=== PATIENT | male | born 1965 | race Caucasian/White ===

== ENCOUNTER 2019-03-20 03:20 | Inpatient (IN) | payer OTHER, SELFPAY ==
[2019-03-20 04:31] LABS: ALT/SGPT 45 U/L (12-78); AST/SGOT 62 U/L (15-37); Albumin 2.3 g/dL (3.4-5.0); Alkaline Phosphatase 107 U/L (45-117); BUN Blood Urea Nitrogen 9 mg/dL (7-18); Bicarbonate 25 mmol/L (21-32); Bilirubin Direct 0.6 mg/dL (0-0.2); Bilirubin Total 1.6 mg/dL (0.2-1.0); CKMB Creatine Kinase MB < 1.0 ng/mL (0.3-3.6); Creatine Phosphokinase 45 U/L (39-308); Glucose Level 203 mg/dL (74-106); Lipase 523 U/L (73-393); Magnesium 1.7 mg/dL (1.8-2.4); NT PRO-BNP 21 pg/mL (<125); Potassium 3.9 mmol/L (3.5-5.1); Protein, Total 5.9 g/dL (6.4-8.2); Sodium Level 141 mmol/L (136-145); Troponin (Emerg Dept Use Only) < 0.02 ng/mL (0.0-0.045)
[2019-03-20 04:37] LABS: Absolute Lymphocytes (CBC) 1.9 K/uL (0.7-4.9); Hematocrit 34.1 % (39.6-49.0); Lymphocytes % 20.8 % (15.3-44.8); MPV 10.4 fL (7.6-11.3); RBC Red Blood Cell Count 3.29 M/uL (4.33-5.43)
[2019-03-20] MEDS ORDERED: PANTOPRAZOLE 40 MG INJ ONE ×2 (04:39→20:08)
[2019-03-20] MEDS ORDERED: NA CHLORIDE 0.9% 250 ML ONE ×2 (04:39→20:09)
[2019-03-20] MEDS ORDERED: ONDANSETRON 4 MG/2 ML VIAL ONE (04:39)
[2019-03-20 04:41] LABS: Protime INR 1.2
[2019-03-20] MEDS ORDERED: NA CHLORIDE 0.9% 1,000 ML ONE ×2 (04:45→10:35)
[2019-03-20] MEDS ORDERED: MORPHINE 2 MG/ML SYR ONE (04:46)
--- NOTE | 2019-03-20 06:17 | P.HP ---
Certification for Inpatient Patient admitted to: Inpatient With expected LOS: >2 Midnights Practitioner: I am a practitioner with admitting privileges, knowledge of patient current condition, hospital course, and medical plan of care. Services: Services provided to patient in accordance with Admission requirements found in Title 42 Section 412.3 of the Code of Federal Regulations Patient History Date of Service: 03/20/19 Reason for admission: Hematemesis History of Present Illness: 53-year-old gentleman with a history of alcohol liver cirrhosis, history of esophageal varices, prior hospitalizations for GI bleed presented to the ED due to an episode of hematemesis. Patient stated he felt nauseous and cough up blood twice before coming to the ED. He also reports melena. He has a history of esophageal varices which were banded in 2017. Patient was also told to follow up 1 month later for further staged banding but never did. He has also been noncompliant with his medications which includes Protonix and propranolol. He reports epigastric pain. No confusion reported. Blood work shows anemia with hemoglobin of 11. His lipase is also elevated to 523. The patient is admitted for further management. Allergies No Known Allergies Allergy (Verified 03/20/19 09:27) - Past Medical/Surgical History Diabetic: No -: Cirrhosis of the liver -: HTN -: Tobacco abuse -: Right nephrolithiasis -: Esophageal varices with history of bleeding -: Banding of varices -: Left thigh muscle repair -: Left arm muscle repair Psychosocial/ Personal History: The patient is , has 1 child. He does not work. - Family History Father -: Hypertension, Lung disease Mother -: Lung disease, Diabetes - Social History Smoking Status: Light Tobacco smoker (1-9 cigarettes/day) Alcohol use: No CD- Drugs: No Caffeine use: Yes Review of Systems Other: General: No fever, no malaise, no unintentional weight loss. Eyes: No eye discharge, Respiratory: No cough, no shortness of breath. CVS: No chest pain, no palpitation, no lightheadedness. GI: No constipation, no diarrhea. Genitourinary: No dysuria, no urinary frequency, no incontinence, no hematuria. Musculoskeletal: No joint pains, or joint swelling, no gait instability. Neurology: No headache, no asymmetric weakness, no problem with swallowing. Except as documented, all other systems reviewed and negative. Physical Examination - Physical Exam General: Alert, In no apparent distress, Oriented x3 HEENT: Mucous membr. moist/pink, Sclerae nonicteric Neck: Supple, JVD not distended Respiratory: Clear to auscultation bilaterally, Normal air movement Cardiovascular: No edema, Normal pulses, Regular rate/rhythm, Normal S1 S2 Capillary refill: <2 Seconds Gastrointestinal: Normal bowel sounds, Soft and benign, Non-distended, No tenderness Musculoskeletal: No swelling, No erythema Integumentary: No rashes, No erythema Neurological: Normal speech, Normal strength at 5/5 x4 extr - Studies Laboratory Data (last 24 hrs) 03/20/19 03:43: PT 14.1 H, INR 1.20, APTT 29.9 03/20/19 03:43: WBC 9.1, Hgb 11.8 L, Hct 34.1 L, Plt Count 153 03/20/19 03:43: Sodium 141, Potassium 3.9, BUN 9, Creatinine 0.90, Glucose 203 H , Magnesium 1.7 L, Total Bilirubin 1.6 H, AST 62 H, ALT 45, Alkaline Phosphatase 107, Lipase 523 H Assessment and Plan - Problems (Diagnosis) (1) GIB (gastrointestinal bleeding) Onset Date: 04/26/15 Current Visit: No Status: Acute Qualifiers: GI bleed type/associated pathology: unspecified gastrointestinal hemorrhage type Qualified Code(s): K92.2 - Gastrointestinal hemorrhage, unspecified (2) Anemia Onset Date: 04/10/16 Current Visit: No Status: Acute Qualifiers: Anemia type: other cause Other causes of anemia: acute posthemorrhagic Qualified Code(s): D62 - Acute posthemorrhagic anemia (3) Esophageal varices in alcoholic cirrhosis Current Visit: No Status: Acute (4) Alcoholic cirrhosis Onset Date: 04/10/16 Current Visit: No Status: Chronic Qualifiers: Ascites presence: without ascites Qualified Code(s): K70.30 - Alcoholic cirrhosis of liver without ascites (5) Tobacco abuse Onset Date: 04/10/16 Current Visit: No Status: Chronic - Plan Admit to the medical floor IV Protonix drip IV octreotide drip Propanolol if his BP will tolerate it. Prophylactic IV Rocephin Monitor H&H q.6 hr and transfuse p.r.n. Spironolactone GI consult. - Advance Directives Does patient have a Living Will: No Does patient have a Durable POA for Healthcare: No
--- NOTE | 2019-03-20 07:56 | RAD REPORT ---
EXAM DESCRIPTION: Evens Single View03/20/2019 3:56 am CLINICAL HISTORY: Hemoptysis COMPARISON: 2015 FINDINGS: The lungs appear clear of acute infiltrate. The heart is normal size IMPRESSION: No acute abnormalities displayed
[2019-03-20] MEDS ORDERED: ONDANSETRON 4 MG/2 ML VIAL IV PRN (09:17)
[2019-03-20 09:45] LABS: Hematocrit 30.6 % (39.6-49.0)
[2019-03-20] MEDS ORDERED: PROMETHAZINE INJ 25 MG/ML AMP IV PRN (09:49)
--- NOTE | 2019-03-20 09:52 | EDPHYS ---
Physician Documentation [facility] Name: Johny Dias Jr Age: 53 yrs Sex: Male : 1965 Arrival Date: 03/20/2019 Time: 03:27 Bed 13 Private MD: Micah Ambrosio ED Physician Lion Henson HPI: 03/20 05:08 This 53 yrs old Male presents to ER via EMS with complaints of Abdominal Pain.tw4 05:08 The patient presents to the emergency department with nausea, vomiting, that is tw4 continuous. The patient presents to the emergency department with vomiting, described as blood streaked, bright red blood. Onset: The symptoms/episode began/occurred today. Possible causes: unknown. The symptoms are aggravated by nothing. The symptoms are alleviated by nothing. The patient has not experienced similar symptoms in the past. Historical: - Allergies: 03:33 No Known Allergies; fc - Home Meds: 03:33 No Rx's in 3 months [Active]; fc - PMHx: 03:33 Cirrhosis; Hypertension; Gallbladder issues; Kidney stones; Esophageal varacies; GI fc Bleed; - PSHx: 03:33 banded varices; arm; leg; fc - Immunization history:: Last tetanus immunization: unknown, Flu vaccine status is unknown. - Coronavirus screen:: The patient has NOT traveled to [place], [place], or [place] in the past 14 days. Proceed with normal triage process as indicated. The patient has NOT had contact with known/suspected case of Coronavirus? Proceed with normal triage procedures. - Social history:: Smoking status: Patient reports the use of cigarette tobacco products, smokes one-half pack cigarettes per day, Patient/guardian denies using alcohol, the patient reports quitting approximately [address], [address] drugs. - Ebola Screening: : Patient negative for fever greater than or equal to 101.5 degrees Fahrenheit, and additional compatible Ebola Virus Disease symptoms Patient denies exposure to infectious person Patient denies travel to an Ebola-affected area in the 21 days before illness onset. ROS: 05:08 Constitutional: Negative for fever, chills, and weight loss, Eyes: Negative for injury, tw4 pain, redness, and discharge, Cardiovascular: Negative for chest pain, palpitations, and edema, Respiratory: Negative for shortness of breath, cough, wheezing, and pleuritic chest pain, Back: Negative for injury and pain, MS/Extremity: Negative for injury and deformity, Skin: Negative for injury, rash, and discoloration, Neuro: Negative for headache, weakness, numbness, tingling, and seizure. 05:08 Abdomen/GI: Positive for abdominal pain, nausea and vomiting, hematemesis, Negative for vomiting, diarrhea, black/tarry stool, rectal pain, rectal bleeding, bowel incontinence, flatulence. Exam: 05:08 Constitutional: This is a well developed, well nourished patient who is awake, alert, tw4 and in no acute distress. Head/Face: Normocephalic, atraumatic. Chest/axilla: Normal chest wall appearance and motion. Nontender with no deformity. No lesions are appreciated. Cardiovascular: Regular rate and rhythm with a normal S1 and S2. No gallops, murmurs, or rubs. Normal PMI, no JVD. No pulse deficits. Respiratory: Lungs have equal breath sounds bilaterally, clear to auscultation and percussion. No rales, rhonchi or wheezes noted. No increased work of breathing, no retractions or nasal flaring. Back: No spinal tenderness. No costovertebral tenderness. Full range of motion. MS/ Extremity: Pulses equal, no cyanosis. Neurovascular intact. Full, normal range of motion. Neuro: Awake and alert, GCS 15, oriented to person, place, time, and situation. Cranial nerves II-XII grossly intact. Motor strength 5/5 in all extremities. Sensory grossly intact. Cerebellar exam normal. Normal gait. 05:08 Abdomen/GI: Inspection: abdomen appears normal, Bowel sounds: normal, Palpation: abdomen is soft and non-tender. Vital Signs: 03:20 BP 95 / 73; Pulse 106; Resp 18; Temp 97.6(O); Pulse Ox 100% on R/A; Weight 102.06 kg fc (R); Height 5 ft. 10 in. (177.80 cm) (R); Pain 9/10; 04:20 BP 109 / 81; Pulse 91; Resp 18; Temp 98; Pulse Ox 99% ; Pain 8/10; jv1 05:18 BP 117 / 91; Pulse 89; Resp 18; Temp 98.2; Pulse Ox 99% ; Pain 2/10; jv1 05:48 BP 113 / 81; Pulse 90; Resp 18; Temp 98; Pulse Ox 100% on R/A; Pain 5/10; jv1 06:16 BP 118 / 82; Pulse 89; Resp 18; Temp 98.2; Pulse Ox 99% ; Pain 4/10; jv1 06:48 BP 106 / 81; Pulse 97; Resp 18; Temp 98.4; Pulse Ox 100% ; Pain 2/10; jv1 07:55 BP 113 / 73; Pulse 91; Resp 17; Pulse Ox 100% on R/A; tw2 03:20 Body Mass Index 32.28 (102.06 kg, 177.80 cm) fc MDM: 03:29 Patient medically screened. tw4 06:48 Differential diagnosis: Nonspecific abd pain, gastritis, viral gastroenteritis. Data tw4 reviewed: vital signs, nurses notes. Data interpreted: Pulse oximetry: Interpretation: normal. Test interpretation: by ED physician or midlevel provider: ECG, plain radiologic studies. Medication response: Zofran relieved the patient's nausea. Response to treatment: the patient's symptoms have markedly improved after treatment, and as a result, I will admit patient. Physician consultation: Salas Hanna was contacted at 05:30, regarding admission, to the telemetry unit. patient's condition, and will see patient in inpatient room. 03/20 03:30 Order name: Cardiac monitoring; Complete Time: 04:00 4 03/20 03:30 Order name: EKG - Nurse/Tech; Complete Time: 04:00 4 03/20 03:30 Order name: IV Saline Lock; Complete Time: 04:00 4 03/20 03:30 Order name: Labs collected and sent; Complete Time: 04:00 4 03/20 03:30 Order name: O2 Per Protocol; Complete Time: 06:17 tw4 03/20 03:30 Order name: O2 Sat Monitoring; Complete Time: 06:17 tw4 EC:50 Rate is 99 beats/min. Rhythm is regular. QRS [place] is Normal. TN interval is normal. QRS tw4 interval is normal. QT interval is normal. No Q waves. T waves are Normal. No ST changes noted. Clinical impression: Normal ECG. Interpreted by me. Reviewed by me. Administered Medications: 04:38 CANCELLED (dose change): morphine 4 mg IVP once; RASS on ADMIN: Combtv4, Very Agttd3, fc Agttd2, Rstlss1, AlertClm0, Drwsy-1, Lt Sdtn-2, Mod Sdtn-3, Dp Sdtn-4, UnArsble-5 04:45 Drug: NS 0.9% 1000 ml Route: IV; Rate: 1 bolus; Site: left antecubital; jv1 05:31 Follow up: Response: No adverse reaction; Marked relief of symptoms; IV Status: jv1 Completed infusion 04:50 Drug: Zofran 4 mg Route: IVP; Site: left antecubital; jv1 05:30 Follow up: Response: No adverse reaction; Nausea is decreased jv1 04:55 Drug: morphine 2 mg {Note: rass 0 alert/awake .} Route: IVP; Site: left antecubital; jv1 05:30 Follow up: Response: No adverse reaction; Pain is decreased; RASS: Alert and Calm (0) jv1 05:00 Drug: ProTONIX 8 mg/hr Route: IV; Rate: 25 ml/hr; Site: left antecubital; jv1 Disposition: 03/20/19 05:41 Hospitalization ordered by Salas Hanna for Inpatient Admission. Preliminary diagnosis are Encounter for screening for upper gastrointestinal disorder, Gastrointestinal hemorrhage, unspecified. - Bed requested for Telemetry/MedSurg (Inpatient). - Status is Inpatient Admission. tw2 - Condition is Fair. - Problem is new. - Symptoms have improved. Signatures: Nuvia Holland RN RN Annalise Bellamy RN RN tl1 Christelle Fisher RN RN tw2 Lion Henson MD MD tw4 Naomi Bose RN RN jv1 Corrections: (The following items were deleted from the chart) 04:38 04:32 morphine 4 mg IVP once; RASS on ADMIN: Combtv4, Very Agttd3, Agttd2, Rstlss1, fc AlertClm0, Drwsy-1, Lt Sdtn-2, Mod Sdtn-3, Dp Sdtn-4, UnArsble-5 ordered. tw4 06:34 05:41 Hospitalization Ordered by Salas Hanna for Inpatient Admission. Preliminary tl1 diagnosis is Encounter for screening for upper gastrointestinal disorder; Gastrointestinal hemorrhage, unspecified. Bed requested for Telemetry/MedSurg (Inpatient). Status is Inpatient Admission. Condition is Fair. Problem is new. Symptoms have improved. tw4 08:43 06:34 03/20/2019 05:41 Hospitalization Ordered by Salas Hanna for Inpatient tw2 Admission. Preliminary diagnosis is Encounter for screening for upper gastrointestinal disorder; Gastrointestinal hemorrhage, unspecified. Bed requested for Telemetry/MedSurg (Inpatient). Status is Inpatient Admission. Condition is Fair. Problem is new. Symptoms have improved. tl1
--- NOTE | 2019-03-20 09:53 | ER ---
Nurse's Notes [facility] Name: Johny Dias Jr Age: 53 yrs Sex: Male : 1965 Arrival Date: 03/20/2019 Time: 03:27 Bed 13 Private MD: Micah Ambrosio Diagnosis: Encounter for screening for upper gastrointestinal disorder;Gastrointestinal hemorrhage, unspecified Presentation: 03/20 03:20 Presenting complaint: Patient states: that he has been having abd pain x 3 days. 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 Denies any vomiting, blood in stool and has taken none of his medications x 3 months. Last stool was tonight. Transition of care: patient was not received from another setting of care. Onset of symptoms was March 17, 2019. Risk Assessment: Do you want to hurt yourself or someone else? Patient reports no desire to harm self or others. Initial Sepsis Screen: Does the patient meet any 2 criteria? HR > 90 bpm. No. Patient's initial sepsis screen is negative. Does the patient have a suspected source of infection? No. Patient's initial sepsis screen is negative. Care prior to arrival: Glucose check: 165. 03:20 Method Of Arrival: EMS: [facility] 03:20 Acuity: CHAY 3 fc Triage Assessment: 03:20 General: Appears in no apparent distress. comfortable, obese, Behavior is calm, fc cooperative, appropriate for age. Pain: Complains of pain in abdomen Pain currently is 9 out of 10 on a pain scale. Quality of pain is described as aching, sharp, Pain began 2-3 days ago. Is continuous. EENT: No deficits noted. Neuro: Level of Consciousness is awake, alert, obeys commands, Oriented to person, place, time, situation, Appropriate for age. Cardiovascular: No deficits noted. Respiratory: Airway is patent Respiratory effort is even, unlabored, Respiratory pattern is regular, symmetrical, Sputum is bloody per pt Breath sounds are clear bilaterally. Onset: The symptoms/episode began/occurred just prior to arrival, the patient reports symptoms have resolved. GI: Abdomen is round obese, Bowel sounds present X 4 quads. Abd is soft X 4 quads Abdomen is tender to palpation X 4 quads. Reports lower abdominal pain, upper abdominal pain, Patient currently denies diarrhea, nausea, vomiting. : No deficits noted. Derm: Skin is intact, Skin is dry, Skin is pale, Skin temperature is warm. Musculoskeletal: No signs and/or symptoms reported regarding the musculoskeletal system. Historical: - Allergies: 03:33 No Known Allergies; fc - Home Meds: 03:33 No Rx's in 3 months [Active]; fc - PMHx: 03:33 Cirrhosis; Hypertension; Gallbladder issues; Kidney stones; Esophageal varacies; GI fc Bleed; - PSHx: 03:33 banded varices; arm; leg; fc - Immunization history:: Last tetanus immunization: unknown, Flu vaccine status is unknown. - Coronavirus screen:: The patient has NOT traveled to [place], [place], or [place] in the past 14 days. Proceed with normal triage process as indicated. The patient has NOT had contact with known/suspected case of Coronavirus? Proceed with normal triage procedures. - Social history:: Smoking status: Patient reports the use of cigarette tobacco products, smokes one-half pack cigarettes per day, Patient/guardian denies using alcohol, the patient reports quitting approximately [address], [address] drugs. - Ebola Screening: : Patient negative for fever greater than or equal to 101.5 degrees Fahrenheit, and additional compatible Ebola Virus Disease symptoms Patient denies exposure to infectious person Patient denies travel to an Ebola-affected area in the 21 days before illness onset. Screenin:31 Abuse screen: Denies threats or abuse. Nutritional screening: No deficits noted. fc Tuberculosis screening: No symptoms or risk factors identified. Fall Risk None identified. Assessment: 04:09 General: Appears in no apparent distress. well groomed. Pain: Complains of pain in jv1 abdomen Pain does not radiate. Pain currently is 8 out of 10 on a pain scale. Quality of pain is described as aching, Pain began 2-3 days ago. 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 Speech is normal. Cardiovascular: Denies chest pain, Capillary refill < 3 seconds Pulses are all present. Respiratory: Airway is patent Respiratory effort is even, unlabored, Respiratory pattern is regular, symmetrical, Breath sounds are clear bilaterally. GI: Abdomen is round distended, Bowel sounds present X 4 quads. Abd is soft Abdomen is tender to palpation X 4 quads. Reports upper abdominal pain, vomiting, since 3 hrs ago pt stated he vomited a handful of blood. : No signs and/or symptoms were reported regarding the genitourinary system. EENT: No signs and/or symptoms were reported regarding the EENT system. Derm: No signs and/or symptoms reported regarding the dermatologic system. Skin is intact, is healthy with good turgor. Musculoskeletal: No signs and/or symptoms reported regarding the musculoskeletal system. Capillary refill < 3 seconds. 05:16 Reassessment: Patient appears in no apparent distress at this time. Patient and/or jv1 family updated on plan of care and expected duration. Pain level reassessed. Patient is alert, oriented x 3, equal unlabored respirations, skin warm/dry/pink. Patient states feeling better. Patient states symptoms have improved. 06:16 Reassessment: Patient appears in no apparent distress at this time. No changes from jv1 previously documented assessment. Patient and/or family updated on plan of care and expected duration. Pain level reassessed. Patient is alert, oriented x 3, equal unlabored respirations, skin warm/dry/pink. Patient states feeling better. Patient states symptoms have improved. 06:48 Reassessment: Patient appears in no apparent distress at this time. No changes from jv1 previously documented assessment. Patient and/or family updated on plan of care and expected duration. Pain level reassessed. Patient is alert, oriented x 3, equal unlabored respirations, skin warm/dry/pink. Patient states feeling better. Patient states symptoms have improved. 07:55 Reassessment: Patient appears in no apparent distress at this time. No changes from tw2 previously documented assessment. Patient and/or family updated on plan of care and expected duration. Pain level reassessed. Patient is alert, oriented x 3, equal unlabored respirations, skin warm/dry/pink. Vital Signs: 03:20 BP 95 / 73; Pulse 106; Resp 18; Temp 97.6(O); Pulse Ox 100% on R/A; Weight 102.06 kg fc (R); Height 5 ft. 10 in. (177.80 cm) (R); Pain 9/10; 04:20 BP 109 / 81; Pulse 91; Resp 18; Temp 98; Pulse Ox 99% ; Pain 8/10; jv1 05:18 BP 117 / 91; Pulse 89; Resp 18; Temp 98.2; Pulse Ox 99% ; Pain 2/10; jv1 05:48 BP 113 / 81; Pulse 90; Resp 18; Temp 98; Pulse Ox 100% on R/A; Pain 5/10; jv1 06:16 BP 118 / 82; Pulse 89; Resp 18; Temp 98.2; Pulse Ox 99% ; Pain 4/10; jv1 06:48 BP 106 / 81; Pulse 97; Resp 18; Temp 98.4; Pulse Ox 100% ; Pain 2/10; jv1 07:55 BP 113 / 73; Pulse 91; Resp 17; Pulse Ox 100% on R/A; tw2 03:20 Body Mass Index 32.28 (102.06 kg, 177.80 cm) fc ED Course: 03:20 Arm band placed on Patient placed in an exam room, on a stretcher. fc 03:27 Patient arrived in ED. fc 03:28 Micah Ambrosio MD is Private Physician. fc 03:28 Lion Henson MD is Attending Physician. tw4 03:30 Triage completed. fc 03:31 Patient has correct armband on for positive identification. Placed in gown. Bed in low fc position. Call light in reach. Side rails up X 1. Pulse ox on. NIBP on. 03:31 No provider procedures requiring assistance completed. fc 05:41 Micah Ambrosio MD is Hospitalizing Provider. tw4 05:41 Salas Hanna is Hospitalizing Provider. tw4 08:16 Patient admitted, IV remains in place. tw2 Administered Medications: 04:38 CANCELLED (dose change): morphine 4 mg IVP once; RASS on ADMIN: Combtv4, Very Agttd3, fc Agttd2, Rstlss1, AlertClm0, Drwsy-1, Lt Sdtn-2, Mod Sdtn-3, Dp Sdtn-4, UnArsble-5 04:45 Drug: NS 0.9% 1000 ml Route: IV; Rate: 1 bolus; Site: left antecubital; jv1 05:31 Follow up: Response: No adverse reaction; Marked relief of symptoms; IV Status: jv1 Completed infusion 04:50 Drug: Zofran 4 mg Route: IVP; Site: left antecubital; jv1 05:30 Follow up: Response: No adverse reaction; Nausea is decreased jv1 04:55 Drug: morphine 2 mg {Note: rass 0 alert/awake .} Route: IVP; Site: left antecubital; jv1 05:30 Follow up: Response: No adverse reaction; Pain is decreased; RASS: Alert and Calm (0) jv1 05:00 Drug: ProTONIX 8 mg/hr Route: IV; Rate: 25 ml/hr; Site: left antecubital; jv1 Outcome: 05:41 Decision to Hospitalize by Provider. tw4 08:15 Admitted to Med/surg accompanied by tech, via wheelchair, room 210, with chart, Report tw2 called to PARMJIT Emery 08:15 Condition: stable 08:15 Instructed on the need for admit. 08:43 Patient left the ED. tw2 Signatures: Nuvia Holland, RN RN fc Christelle Fisher RN RN tw2 Lion Henson MD MD tw4 Naomi Bose RN RN jv1
[2019-03-20] MEDS: OCTREOTIDE 500 MCG in NA CHLORIDE 0.9% 500 ML IV SCH ×2 (10:00→20:00)
[2019-03-20] MEDS ORDERED: D5 0.9 NS 1,000 ML IV SCH ×2 (10:00→11:00)
[2019-03-20] MEDS ORDERED: D5 0.9 NS 1,000 ML IV ONE (10:01)
[2019-03-20] MEDS ORDERED: MORPHINE 2 MG/ML SYR IV ONE (10:11)
--- NOTE | 2019-03-20 10:23 | EKG ---
Test Date: 2019-03-20 Test Time: 03:57:20 Geographic Analyst: ANDREW MEASUREMENT RESULTS: Intervals: Rate: 99 TN: 140 QRSD: 76 QT: 350 QTc: 449 [place]: P: -1 TN: 140 QRS: -28 T: 21 INTERPRETIVE STATEMENTS: Normal sinus rhythm Normal ECG Compared to ECG 04/06/2016 20:55:52 No significant changes Electronically Signed On 03-20-19 10:22:59 [employer] by Mitchell Rios
[2019-03-20] MEDS: PANTOPRAZOLE INJ 80 MG in NA CHLORIDE 0.9% 250 ML IV SCH ×2 (10:35→20:00)
--- NOTE | 2019-03-20 10:38 | P.PN ---
Subjective Date of Service: 03/20/19 Chief Complaint: Hematemesis Subjective: No new changes (-seen , feels much better, states no recurrent nausea. States no hematemesis but only cough with blood-stained sputum - admit to stoppe taking his PPI and other meds since last EGD with banding 2 years ago due to finance issues -Denies any hematochezia or abdominal pain now -patient advised not to eat anything - 45 mins after intial eval , patient developed new hematemsis with about 20cc of blood vomitius , large over 100cc or hematochezia , new hypotension with systolic to the 90s) Review of Systems 10-point ROS is otherwise unremarkable Physical Examination - Vital Signs Temperature: 98.2 F Blood Pressure: 113/73 Pulse: 91 Respirations: 18 - Physical Exam General: Alert, In no apparent distress, Oriented x3 HEENT: Atraumatic, Normocephalic, PERRLA, Scleral icterus (tinge) Neck: 2+ carotid pulse no bruit, JVD not distended Respiratory: Clear to auscultation bilaterally, Normal air movement Cardiovascular: No edema, Regular rate/rhythm, Normal S1 S2 Gastrointestinal: Normal bowel sounds, Non-distended, Tenderness (epigastric area ) Musculoskeletal: No clubbing, No swelling Integumentary: No rashes, No breakdown Neurological: Normal gait, Normal speech, Normal strength at 5/5 x4 extr, Normal tone - Studies Laboratory Data (last 24 hrs) 03/20/19 03:43: PT 14.1 H, INR 1.20, APTT 29.9 03/20/19 03:43: WBC 9.1, Hgb 11.8 L, Hct 34.1 L, Plt Count 153 03/20/19 03:43: Sodium 141, Potassium 3.9, BUN 9, Creatinine 0.90, Glucose 203 H , Magnesium 1.7 L, Total Bilirubin 1.6 H, AST 62 H, ALT 45, Alkaline Phosphatase 107, Lipase 523 H Medications List Reviewed: Yes Assessment & Plan - Problems (Diagnosis) (1) Anemia Onset Date: 04/10/16 Current Visit: No Status: Acute Qualifiers: Anemia type: other cause Other causes of anemia: acute posthemorrhagic Qualified Code(s): D62 - Acute posthemorrhagic anemia (2) Elevated liver function tests Onset Date: 04/10/16 Current Visit: No Status: Acute (3) Esophageal varices in alcoholic cirrhosis Current Visit: No Status: Acute (4) GIB (gastrointestinal bleeding) Onset Date: 04/10/16 Current Visit: No Status: Acute (5) Tobacco abuse Onset Date: 04/10/16 Current Visit: No Status: Chronic Plan to discharge in: Greater than 2 days Physician Review: Patient Assessed, Agree with Above Assessment and Plan Physician Review Additional Text: # GIB - active and recurrent - will type and screen 2 unit PRBC now - repeat stat h/h trend down to 10.7 from 11.8 - Given active bleeding , will give PRBC if still low BP post NS Bolus - will switch Octreotide from bid to gtt - c/w PPI gtt - attempt made to reach GI stat , no response now , hospital stroke belt sander operator told to continue trying - will transfer patient to the ICU for close monitoring -likely due to recurrent esophageal varices vs new lower GI varices -c/w h/h q4 -c/w NPO status #Anemia - due to blood loss - as above # Hypotension - c/w IVF # Tobacco use - start nicotine patch # hx of alcoholic liver cirrhosis- state he stopped drinking since > 4 years DVT prop - SCD
[2019-03-20] MEDS ORDERED: OCTREOTIDE 500 MCG in NA CHLORIDE 0.9% 500 ML IV SCH (11:00)
[2019-03-20] MEDS ORDERED: INFLUENZA VACCINE (for 3y+) 0.5 ML DOSE IMVAC ONE (11:00)
[2019-03-20] MEDS ORDERED: OCTREOTIDE ACETATE 100 MCG/ML IV ONE (11:13)
[2019-03-20] MEDS ORDERED: CEFTRIAXONE/SWI 2gm 2 GM/20 ML SYR IV ONE (11:30)
[2019-03-20] MEDS ORDERED: PROMETHAZINE INJ 25 MG/ML AMP IV ONE (12:00)
[2019-03-20] MEDS: Ringers Lactate 1,000 ML IV SCH ×2 (12:10→19:38)
[2019-03-20] MEDS ORDERED: propofoL 200 MG/20 ML VIAL IV ONE ×2 (12:56→12:59)
[2019-03-20] MEDS ORDERED: LIDOCAINE 2% MPF 5 ML VIAL ONE (12:56)
[2019-03-20] MEDS ORDERED: SUCCINYLCHOLINE 20 MG/ML (10 ML) IV ONE (12:59)
[2019-03-20] MEDS ORDERED: EPINEPHRINE/PF 1 MG/ML AMP ONE (13:07)
[2019-03-20] MEDS ORDERED: MIDAZOLAM HCL 2 MG/2 ML INJ ONE (13:35)
--- NOTE | 2019-03-20 13:46 | ENDO RPT ---
[address], [address] EGD PROCEDURE REPORT EXAM DATE: 03/20/2019 PATIENT NAME: Johny Dias MR#: [id number] BIRTHDATE: 1965 ATTENDING: Lobo [address] STATUS: inpatient MANAGER RESEARCH AND DEVELOPMENT: Roscoe Helton RN, Luis Fernando Hoskins CST, Jemima Lau RN, and Cecily Aguiar RN INDICATIONS: The patient is a 53 yr old Male here for an EGD due to upper G.I. bleeding, melenic bleeding, hematemesis, and anemia PROCEDURE PERFORMED: EGD, diagnostic MEDICATIONS: Per Anesthesia. TOPICAL ANESTHETIC: none CONSENT: The patient understands the risks and benefits of the procedure and understands that these risks include, but are not limited to: sedation, allergic reaction, infection, perforation and/or bleeding. Alternative means of evaluation and treatment include, among others: physical exam, x-rays, and/or surgical intervention. The patient elects to proceed with this endoscopic procedure. DESCRIPTION OF PROCEDURE: During intra-op preparation period all mechanical medical equipment was checked for proper function. Hand hygiene and appropriate measures for infection prevention was taken. Procedure, possible complications, and alternatives including but not limited to the possibility of bleeding, perforation, tear, infection, sepsis, need for surgery, need for blood transfusion, and anesthesia related complications were explained to the patient. After the risks, benefits and alternatives of the procedure were thoroughly explained, Informed consent was verified, confirmed and timeout was successfully executed by the treatment team. The patient was placed in the left lateral position. The patient was anesthetized with topical anesthesia. Through the anesthetized oropharyngeal area, the scope was passed without any difficulty. The Pentax EG-[id number] ([id number]) endoscope was introduced through the mouth and advanced to the stomach antrum. Retroflexed views revealed varices. The gastroscope was then slowly withdrawn and removed. Grade II varices were found in the lower esophagus. Blood was found in the total stomach. Grade III varices were found in the fundus. ADVERSE EVENTS: There were no complications. IMPRESSIONS: 1. Three columns of non-bleeding grade II varices in the lower esophagus (no blood in the esophagus) 2. Large amount of blood/clot and retained solid food in the body/fundus and antrum (food, blood and blood clots prevented intubation into duodenum, see photo 9) 3. Probable grade III varices in the fundus though not clearly seen due to blood/clots/food (unable to suction out) RECOMMENDATIONS: 1. tertiary center for gastric varices therapy (not avaiable here) 2. Erythromycin to clear stomach (not avaiable here) 5. ICU monitoring REPEAT EXAM: Lobo Leggett Dr eSigned: Lobo Leggett Dr 03/20/2019 1:45 PM cc: CPT CODES: ICD9 CODES: PATIENT NAME: Johny Dias MR#: [id number]
[2019-03-20] MEDS ORDERED: MIDAZOLAM HCL 2 MG/2 ML INJ IV PRN (14:09)
[2019-03-20] MEDS ORDERED: HALOPERIDOL LACT 5 MG/ML INJ IV PRN (14:09)
[2019-03-20] MEDS: LORazepam 2 MG/ML VIAL IV PRN (14:20)
[2019-03-20] MEDS: propofoL 1,000 MG/100 ML VIAL IV PRN ×3 (14:43→21:41)
--- NOTE | 2019-03-20 15:01 | P.DS ---
Admission Date: 03/20/19 Discharge Date: 03/20/19 Disposition: [facility] Discharge Condition: CRITICAL Reason for Admission: Hematemesis - Problems (1) Anemia Onset Date: 04/10/16 Current Visit: No Status: Acute Qualifiers: Anemia type: other cause Other causes of anemia: acute posthemorrhagic Qualified Code(s): D62 - Acute posthemorrhagic anemia (2) Elevated liver function tests Onset Date: 04/10/16 Current Visit: No Status: Acute (3) Esophageal varices in alcoholic cirrhosis Current Visit: No Status: Acute (4) GIB (gastrointestinal bleeding) Onset Date: 04/10/16 Current Visit: Yes Status: Acute Qualifiers: GI bleed type/associated pathology: gastrointestinal hemorrhage with hematemesis Qualified Code(s): K92.0 - Hematemesis (5) Tobacco abuse Onset Date: 04/10/16 Current Visit: No Status: Chronic Brief History of Present Illness: History of Present Illness: 53-year-old gentleman with a history of alcohol liver cirrhosis, history of esophageal varices, prior hospitalizations for GI bleed presented to the ED due to an episode of hematemesis. Patient stated he felt nauseous and cough up blood twice before coming to the ED. He also reports melena. He has a history of esophageal varices which were banded in 2017. Patient was also told to follow up 1 month later for further staged banding but never did. He has also been noncompliant with his medications which includes Protonix and propranolol. He reports epigastric pain. No confusion reported. Blood work shows anemia with hemoglobin of 11. His lipase is also elevated to 523. The patient is admitted for further management. Vital Signs/Physical Exam: Temp Pulse Resp BP Pulse Ox 98.2 F 91 H 18 113/73 98 03/20/19 10:45 03/20/19 10:45 03/20/19 10:49 03/20/19 10:45 03/20/19 10:49 Laboratory Data at Discharge: WBC 9.1 K/uL (4.3-10.9) 03/20/19 03:43 Hgb 10.7 g/dL (13.6-17.9) L 03/20/19 09:32 Hct 30.6 % (39.6-49.0) L 02/06/20 09:32 Plt Count 153 K/uL (152-406) 03/20/19 03:43 PT 14.1 SECONDS (9.5-12.5) H 03/20/19 03:43 INR 1.20 03/20/19 03:43 APTT 29.9 SECONDS (24.3-36.9) 03/20/19 03:43 Sodium 141 mmol/L (136-145) 03/20/19 03:43 Potassium 3.9 mmol/L (3.5-5.1) 03/20/19 03:43 BUN 9 mg/dL (7-18) 03/20/19 03:43 Creatinine 0.90 mg/dL (0.55-1.3) 03/20/19 03:43 Glucose 203 mg/dL (74-106) H 03/20/19 03:43 Magnesium 1.7 mg/dL (1.8-2.4) L 03/20/19 03:43 Total Bilirubin 1.6 mg/dL (0.2-1.0) H 03/20/19 03:43 AST 62 U/L (15-37) H 03/20/19 03:43 ALT 45 U/L (12-78) 03/20/19 03:43 Alkaline Phosphatase 107 U/L (45-117) 03/20/19 03:43 Lipase 523 U/L (73-393) H 03/20/19 03:43 Activity: Bedrest
--- NOTE | 2019-03-20 15:18 | RAD REPORT ---
EXAM DESCRIPTION: RAD - Chest Single View - 03/20/2019 2:34 pm CLINICAL HISTORY: ett placement COMPARISON: Chest Single View dated 03/20/2019; CHEST SINGLE VIEW dated 04/24/2015 TECHNIQUE: AP portable chest image was obtained 03/20/2019 2:34 pm . FINDINGS: Lung volumes are low. ET tube is in good position with the tip mid aortic arch level. This is 3 cm above the matthew. Patchy atelectasis or infiltrate changes are present in the left lung base . These can be monitored over subsequent imaging. Heart and vasculature are normal. No measurable ple ural effusion and no pneumothorax. No acute bony abnormality seen. No acute aortic findings suspected . IMPRESSION: ET tube has been placed. Tip is mid aortic arch level 3 cm above the matthew.
[2019-03-20 15:23] LABS: MPV 9.7 fL (7.6-11.3); RBC Red Blood Cell Count 2.75 M/uL (4.33-5.43)
[2019-03-20 15:43] LABS: Absolute Lymphocytes (CBC) 1.1 K/uL (0.7-4.9); Basophils % 0.8 % (0-1.3); Lymphocytes % 11.3 % (15.3-44.8)
[2019-03-20 19:02] LABS: Blood Morphology Comment NOTED (NOT SEEN); Macrocytosis 1+; Platelet Estimate DECR; Urine White Blood Cell Casts OK
[2019-03-20] MEDS ORDERED: OCTREOTIDE ACETATE 500 MCG/ML ONE (20:06)
[2019-03-20] MEDS ORDERED: NA CHLORIDE 0.9% 500 ML ONE (20:06)
[2019-03-20] MEDS: CEFTRIAXONE/SWI 1gm 1 GM/10 ML SYR IV SCH (20:28)
[2019-03-20] MEDS ORDERED: MAGNESIUM SULFATE 1 gm IVPB 1 GM/100 ML BAG IV ONE (20:54)
[2019-03-20 23:02] LABS: Hematocrit 25.7 % (39.6-49.0)
[2019-03-21] MEDS: FENTANYL CITR 100 MCG/2 ML IV PRN ×2 (00:14→15:46)
[2019-03-21] MEDS ORDERED: NA CHLORIDE 0.9% 500 ML IV ONE (00:50)
[2019-03-21 03:16] LABS: Hematocrit 22.1 % (39.6-49.0)
[2019-03-21] MEDS: LORazepam 2 MG/ML VIAL IV PRN (03:43)
[2019-03-21 03:55] LABS: Potassium 6.2 mmol/L (3.5-5.1)
[2019-03-21] MEDS ORDERED: Phenylephrine HCl 10 MG/ML 1 ML VIAL ONE (04:14)
[2019-03-21] MEDS ORDERED: NA CHLORIDE 0.9% 250 ML ONE ×2 (04:14→09:15)
[2019-03-21] MEDS ORDERED: NA CHLORIDE 0.9% 1,000 ML IV ONE (04:28)
[2019-03-21] MEDS ORDERED: LIDOCAINE 1% MPF 5 ML VIAL ONE (04:37)
[2019-03-21 04:51] VITALS: O2SAT 100
[2019-03-21] MEDS ORDERED: NA CHLORIDE 0.9% 1,000 ML IV SCH ×2 (05:00→12:00)
[2019-03-21] MEDS: NA CHLORIDE 0.9% 250 ML IV SCH ×2 (05:08→10:25)
[2019-03-21 05:46] VITALS: BMI 36.6
[2019-03-21] MEDS: PANTOPRAZOLE INJ 80 MG in NA CHLORIDE 0.9% 250 ML IV SCH (06:00)
[2019-03-21] MEDS: OCTREOTIDE 500 MCG in NA CHLORIDE 0.9% 500 ML IV SCH (06:00)
[2019-03-21] MEDS ORDERED: NOREPINEPHRINE 4 MG/4 ML VIAL ONE (06:23)
[2019-03-21] MEDS ORDERED: NOREPINEPHRINE 4 MG in D5W 250 ML IV PRN ×2 (06:23→13:53)
[2019-03-21] MEDS ORDERED: D5W 250 ML IV ONE (06:24)
[2019-03-21 07:28] LABS: Hematocrit 25.6 % (39.6-49.0)
[2019-03-21 07:32] LABS: Protime INR 2.14
[2019-03-21] MEDS ORDERED: PANTOPRAZOLE INJ 80 MG in NA CHLORIDE 0.9% 250 ML IV SCH (08:00)
[2019-03-21] MEDS ORDERED: OCTREOTIDE 500 MCG in NA CHLORIDE 0.9% 500 ML IV SCH (08:00)
[2019-03-21] MEDS: DOPAMINE/D5W 400 MG/250 ML BAG IV PRN ×3 (08:10→13:53)
[2019-03-21] MEDS ORDERED: DOPAMINE/D5W 400 MG/250 ML BAG IV ONE (08:12)
[2019-03-21] MEDS ORDERED: VASOPRESSIN 80 UNIT in NA CHLORIDE 0.9% 250 ML IV PRN (08:46)
--- NOTE | 2019-03-21 08:46 | EKG ---
Test Date: 2019-03-20 Test Time: 10:40:13 Script Editor: SHYANN MEASUREMENT RESULTS: Intervals: Rate: 102 NJ: 134 QRSD: 74 QT: 350 QTc: 456 Edmond: P: -7 NJ: 134 QRS: -28 T: 7 INTERPRETIVE STATEMENTS: Sinus tachycardia Otherwise normal ECG Compared to ECG 03/20/2019 03:57:20 Sinus rhythm no longer present Electronically Signed On 03-21-19 08:44:58 KARDEX CLERK by Mitchell Rios
[2019-03-21] MEDS: CEFTRIAXONE/SWI 1gm 1 GM/10 ML SYR IV SCH (09:00)
--- NOTE | 2019-03-21 09:29 | P.PN ---
Subjective Date of Service: 03/21/19 Chief Complaint: Hematemesis Subjective: New changes (-s/p developed hypotension early this am - now on 3 IV pressors and increasing need - still unable to be transferred to [facility] due to bed space - s/p prbc) Review of Systems is unable to be obtained Physical Examination - Vital Signs Temperature: 97.0 F Blood Pressure: 146/63 Pulse: 109 Respirations: 34 Pulse Ox (%): 95 - Physical Exam General: Other (on vent ) HEENT: Atraumatic, Normocephalic (orally tubed) Neck: 2+ carotid pulse no bruit, JVD not distended Respiratory: Normal air movement, Diminished Cardiovascular: Regular rate/rhythm, Normal S1 S2, Edema (trace +) Gastrointestinal: Distended, Ascites Musculoskeletal: No clubbing, No contractures Integumentary: No rashes, No breakdown Neurological: Other (sedated ) - Studies Laboratory Last Values WBC 9.5 K/uL (4.3-10.9) 03/20/19 14:57 RBC 2.75 M/uL (4.33-5.43) L 03/20/19 14:57 Hgb 8.0 g/dL (13.6-17.9) L 03/21/19 07:15 Hct 25.6 % (39.6-49.0) L D 03/21/19 07:15 MCV 105.5 fL (80-100) H 03/20/19 14:57 MCH 36.5 pg (27.0-35.0) H 03/20/19 14:57 MCHC 34.6 g/dL (32.0-36.0) 03/20/19 14:57 RDW 14.0 % (12.1-15.2) 03/20/19 14:57 Plt Count 125 K/uL (152-406) L 03/20/19 14:57 MPV 9.7 fL (7.6-11.3) 03/20/19 14:57 Neutrophils % 81.0 % (41.7-73.7) H 03/20/19 14:57 Lymphocytes % 11.3 % (15.3-44.8) L 03/20/19 14:57 Monocytes % 6.9 % (3.3-12.3) 03/20/19 14:57 Eosinophils % 0.0 % (0-4.4) 03/20/19 14:57 Basophils % 0.8 % (0-1.3) 03/20/19 14:57 Absolute Neutrophils 7.9 K/uL (1.8-8.0) 03/20/19 14:57 Absolute Lymphocytes 1.1 K/uL (0.7-4.9) 03/20/19 14:57 Absolute Monocytes 0.7 K/uL (0.1-1.3) 03/20/19 14:57 Absolute Eosinophils 0.0 K/uL (0-0.5) 03/20/19 14:57 Absolute Basophils 0.1 K/uL (0-0.5) 03/20/19 14:57 Macrocytosis 1+ 03/20/19 14:57 Morphology Comment Noted (NOT SEEN) 03/20/19 14:57 PT 24.5 SECONDS (9.5-12.5) H 03/21/19 03:05 INR 2.14 03/21/19 03:05 APTT 29.9 SECONDS (24.3-36.9) 03/20/19 03:43 Sodium 145 mmol/L (136-145) 03/21/19 03:05 Potassium 5.4 mmol/L (3.5-5.1) H 03/21/19 07:15 Chloride 117 mmol/L (98-107) H 03/21/19 03:05 Carbon Dioxide 17 mmol/L (21-32) L 03/21/19 03:05 BUN 20 mg/dL (7-18) H 03/21/19 03:05 Creatinine 1.52 mg/dL (0.55-1.3) H 03/21/19 03:05 Estimated GFR 48 mL/min (=/>90) L 03/21/19 03:05 Glucose 146 mg/dL (74-106) H 03/21/19 03:05 Calcium 6.9 mg/dL (8.5-10.1) L* 03/21/19 03:05 Magnesium 2.0 mg/dL (1.8-2.4) 03/21/19 03:05 Total Bilirubin 1.6 mg/dL (0.2-1.0) H 03/20/19 03:43 Direct Bilirubin 0.6 mg/dL (0-0.2) H 03/20/19 03:43 AST 62 U/L (15-37) H 03/20/19 03:43 ALT 45 U/L (12-78) 03/20/19 03:43 Alkaline Phosphatase 107 U/L (45-117) 03/20/19 03:43 Creatine Kinase 45 U/L (39-308) 03/20/19 03:43 CK-MB (CK-2) < 1.0 ng/mL (0.3-3.6) 03/20/19 03:43 Rapid Troponin I < 0.02 ng/mL (0.0-0.045) 03/20/19 03:43 NT-Pro-B Natriuret Pep 21 pg/mL (<125) 03/20/19 03:43 Serum Total Protein 5.9 g/dL (6.4-8.2) L 03/20/19 03:43 Albumin 2.3 g/dL (3.4-5.0) L 03/20/19 03:43 Globulin 3.6 g/dL (2.3-3.5) H 03/20/19 03:43 Albumin/Globulin Ratio 0.6 (1.1-1.8) L 03/20/19 03:43 Lipase 523 U/L (73-393) H 03/20/19 03:43 ABO/Rh A POSITIVE 03/20/19 03:43 Solid Phase Ab Screen Negative 03/20/19 03:43 Crossmatch See Detail 03/21/19 09:21 Medications List Reviewed: Yes Assessment & Plan - Problems (Diagnosis) (1) Anemia Onset Date: 04/10/16 Current Visit: No Status: Acute Qualifiers: Anemia type: other cause Other causes of anemia: acute posthemorrhagic Qualified Code(s): D62 - Acute posthemorrhagic anemia (2) Elevated liver function tests Onset Date: 04/10/16 Current Visit: No Status: Acute (3) Esophageal varices in alcoholic cirrhosis Current Visit: No Status: Acute (4) GIB (gastrointestinal bleeding) Onset Date: 04/10/16 Current Visit: Yes Status: Acute Qualifiers: GI bleed type/associated pathology: gastrointestinal hemorrhage with hematemesis Qualified Code(s): K92.0 - Hematemesis (5) Tobacco abuse Onset Date: 04/10/16 Current Visit: No Status: Chronic Physician Review: Patient Assessed, Agree with Above Assessment and Plan Physician Review Additional Text: # GIB - still actively bleeding as evidence by anemia and abdominal distension -possible new esophageal varices bleed or worsening gastric varcies bleed - will dose FFPX2 , PRBC 2 more unit ( total 4 unit ),DDAVP , and platelets now -added 4th IV pressors for persistent low BP -[facility] ICU team -Dr Weber and poultry vaccinator discussed with extensively , they wants abx and will not take patient until BP stable - will start meropenem and vanco in addition to ongoing Rocephin - GI discussed with again , recommend surgery eval -Dr Jaramillo d/w - will come to evaluate patient -Dr Augustine will repeat EGD now -will continue PPI gtt and Octreotide from bid to gtt -likely due to recurrent esophageal varices vs new lower GI varices -c/w h/h q4 -c/w NPO status #Anemia - trending down - continue PRBC as above # Hypotension - on 4 IV pressors now # Tobacco use - c/w nicotine patch # hx of alcoholic liver cirrhosis- state he stopped drinking since > 4 years # DVT prop - SCD # on Vent status -intubated for EGD , remain on vent for minimize risk of aspiration - off sedation now due to low BP - will consult ortho and follow
[2019-03-21] MEDS ORDERED: CALCIUM GLUC 10% INJ 9.3 MEQ in NA CHLORIDE 0.9% 100 ML IV ONE (09:30)
[2019-03-21] MEDS ORDERED: Meropenem 1,000 MG in NA CHLORIDE 0.9% 100 ML IV SCH (09:30)
[2019-03-21] MEDS ORDERED: D5W 1,000 ML IV ONE (09:43)
[2019-03-21] MEDS ORDERED: DESMOPRESSIN 4 MCG/ML AMP IV ONE (09:44)
[2019-03-21] MEDS ORDERED: D50W 25 GM/50 ML SYRINGE/VIAL IV ONE (09:44)
[2019-03-21] MEDS ORDERED: VANCOMYCIN 2 GM in NA CHLORIDE 0.9% 500 ML IVPB SCH (10:00)
[2019-03-21] MEDS ORDERED: DESMOPRESSIN 20 MCG in NA CHLORIDE 0.9% 50 ML IV ONE (10:00)
[2019-03-21] MEDS ORDERED: VANCOMYCIN 1 GM in NA CHLORIDE 0.9% 250 ML IVPB SCH (10:00)
[2019-03-21] MEDS ORDERED: NA CHLORIDE 0.9% 250 ML IV SCH (10:00)
[2019-03-21] MEDS ORDERED: NOREPINEPHRINE 8 MG in Dextrose 5%-Water 500 ML IV PRN (10:18)
--- NOTE | 2019-03-21 10:52 | RAD REPORT ---
EXAM DESCRIPTION: RAD - Chest Single View - 03/21/2019 6:28 am CLINICAL HISTORY: 53 years Male, picc placement COMPARISON: None. TECHNIQUE: Single portable x-ray view of the chest performed on 03/21/2019 at 5:33 AM FINDINGS: The lungs are hypoinflated and are grossly clear. There is an artifact projecting along th e midline of the chest. No definite airspace consolidation is identified. The lateral costophrenic slater lci are clear. There is no evidence of a pneumothorax. The cardiac silhouette is prominent and is likely accentuated by the portable technique. No acute osseous abnormality is identified. No focal soft tissue abnormalities are seen. Lines and tubes: The endotracheal tube tip terminates at the level of the clavicular heads. A right upper extremity PICC line catheter is present and the tip is not well visualized but terminates in t he region of the subclavian vein/superior vena cava junction. IMPRESSION: 1. No definite acute intrathoracic disease. 2. Prominence of the cardiac silhouette which is likely accentuated by the portable technique. 3. Endotracheal tube in grossly satisfactory position. 4. The tip of the right upper extremity PICC line catheter is not well visualized but appears to term inate in the region of the subclavian vein/SVC junction. Electronically signed by: Yuni Min DO 03/21/2019 5:56 AM SERVICE PERSON Due to temporary technical issues with the PACS/Fluency reporting system, reports are being signed by the in house radiologist as a courtesy to ensure prompt reporting. The interpreting radiologist is f ully responsible for the content of the report.
--- NOTE | 2019-03-21 11:50 | P.CNS ---
Date of Consult: 03/28/19 Reason for Consult: Shock GI bleeding Chief Complaint: Hematemesis History of Present Illness: Patient is 53 years of age with a history of cirrhosis of the liver prior history of bleeding which was nearly fatal apparently does not take care of self as not follow up with physicians non compliant with medication admitted with sudden onset of hematemesis and shock he has he was intubated currently on a ventilator breathing on on maximum vasopressor therapy discuss with continue with supportive therapy change him over to assist-control is chest x- rays clear continue with IV fluid boluses at steroids Allergies No Known Allergies Allergy (Verified 03/20/19 09:27) - Past Medical/Surgical History Diabetic: No -: Cirrhosis of the liver -: HTN -: Tobacco abuse -: Right nephrolithiasis -: Esophageal varices with history of bleeding -: Banding of varices -: Left thigh muscle repair -: Left arm muscle repair Psychosocial/ Personal History: The patient is , has 1 child. He does not work. - Family History Father Medical History: Hypertension, Lung disease Mother Medical History: Lung disease, Diabetes - Social History Smoking Status: Current every day smoker Alcohol use: No CD- Drugs: No Caffeine use: Yes Place of Residence: Home Review of Systems is unable to be obtained Physical Examination Temp Pulse Resp BP Pulse Ox 97.0 F 108 H 34 H 130/97 H 95 03/21/19 10:48 03/21/19 10:48 03/21/19 10:48 03/21/19 10:48 03/21/19 09:53 General: Moderate distress, Unresponsive, Comatose Respiratory: Clear to auscultation bilaterally Cardiovascular: No edema Gastrointestinal: Normal bowel sounds, Distended Musculoskeletal: No clubbing, No swelling - Problems (1) Shock Current Visit: Yes Status: Acute Plan: Patient is 53 years of age admitted with hypovolemic shock secondary to blood loss from his esophageal varices history of cirrhosis of the liver presume from prior alcohol consumption patient is non compliant currently on maximum vasopressor therapy later changed to assist-control continue with IV fluids is chest x-rays clear check arterial blood gases patient is change to pressure control ventilation labs reviewed prognosis very poor chest x-rays clear I have added hydrocortisone doubt aspiration blood cultures are so far negative continue with broad-spectrum antibiotics until is hemodynamically more stable Time Spent Managing Pts care (In Minutes): 60
[2019-03-21 12:46] LABS: Arterial Blood Carboxyhemoglob 0.2 % (0-1.5); Blood Gas Oxyhemoglobin 97.5 % (94-97); Blood O2 Saturation 98.8 % (92-98.5)
[2019-03-21] MEDS ORDERED: D5W 1,000 ML with NA BICARB 8.4% 100 MEQ IV SCH ×2 (13:00)
[2019-03-21] MEDS ORDERED: Meropenem 1000 MG/VIAL IV SCH (17:00)
[2019-03-21 17:16] VITALS: TEMP 96.2
[2019-03-21 17:34] VITALS: BP 33/18
--- NOTE | 2019-03-21 17:53 | P.DS ---
Admission Date: 03/20/19 Discharge Date: 03/21/19 Disposition: Discharge Condition: Reason for Admission: Hematemesis - Problems (1) Anemia Onset Date: 04/10/16 Status: Acute Qualifiers: Anemia type: other cause Other causes of anemia: acute posthemorrhagic Qualified Code(s): D62 - Acute posthemorrhagic anemia (2) Elevated liver function tests Onset Date: 04/10/16 Status: Acute (3) Esophageal varices in alcoholic cirrhosis Status: Acute (4) GIB (gastrointestinal bleeding) Onset Date: 04/10/16 Status: Acute Qualifiers: GI bleed type/associated pathology: gastrointestinal hemorrhage with hematemesis Qualified Code(s): K92.0 - Hematemesis (5) Tobacco abuse Onset Date: 04/10/16 Status: Chronic Brief History of Present Illness: History of Present Illness: 53-year-old gentleman with a history of alcohol liver cirrhosis, history of esophageal varices, prior hospitalizations for GI bleed presented to the ED due to an episode of hematemesis. Patient stated he felt nauseous and cough up blood twice before coming to the ED. He also reports melena. He has a history of esophageal varices which were banded in 2017. Patient was also told to follow up 1 month later for further staged banding but never did. He has also been noncompliant with his medications which includes Protonix and propranolol. He reports epigastric pain. No confusion reported. Blood work shows anemia with hemoglobin of 11. His lipase is also elevated to 523. The patient is admitted for further management. Hospital Course: Patient had EGD done with findings of both esophageal and gastric varices. He was initially stable but continued to decompensate Overnite requiring increasing IV pressors. Repeat EGD was done after multiple transfusions with attempted banding of the esophageal varices. Patient remained on 4 IV pressors with trendign down BP despite 4 units of PRBC and FFP if continues to have worsening hypotension. Family decided to withdraw care and IV pressors were stopped. patient at 4:40 p.m. today Vital Signs/Physical Exam: Temp Pulse Resp BP Pulse Ox 96.2 F L 70 26 H 33/18 L 100 03/21/19 16:00 03/21/19 16:06 03/21/19 16:16 03/21/19 16:06 03/21/19 15:46 Laboratory Data at Discharge: WBC 9.5 K/uL (4.3-10.9) 03/20/19 14:57 Hgb 8.0 g/dL (13.6-17.9) L 03/21/19 07:15 Hct 25.6 % (39.6-49.0) L D 03/21/19 07:15 Plt Count 125 K/uL (152-406) L 03/20/19 14:57 PT 24.5 SECONDS (9.5-12.5) H 03/21/19 03:05 INR 2.14 03/21/19 03:05 APTT 29.9 SECONDS (24.3-36.9) 03/20/19 03:43 Sodium 145 mmol/L (136-145) 03/21/19 03:05 Potassium 5.4 mmol/L (3.5-5.1) H 03/21/19 07:15 BUN 20 mg/dL (7-18) H 03/21/19 03:05 Creatinine 1.52 mg/dL (0.55-1.3) H 03/21/19 03:05 Glucose 146 mg/dL (74-106) H 03/21/19 03:05 Magnesium 2.0 mg/dL (1.8-2.4) 03/21/19 03:05 Total Bilirubin 1.6 mg/dL (0.2-1.0) H 03/20/19 03:43 AST 62 U/L (15-37) H 03/20/19 03:43 ALT 45 U/L (12-78) 03/20/19 03:43 Alkaline Phosphatase 107 U/L (45-117) 03/20/19 03:43 Lipase 523 U/L (73-393) H 03/20/19 03:43 Activity: Bedrest
--- NOTE | 2019-03-24 16:28 | CON ---
Date of Consultation: 03/20/2019 Reason For Consultation: Hematemesis. History Of Present Illness: Patient is a 53-year-old white male with history of alcoholic cirrhosis; esophageal varices; prior hospitalization with upper GI bleed in 2016, status post esophageal bandin g at that time. Patient came to the hospital after hematemesis x2 with nausea and coughing. Also re ports melena. He had esophageal varices banded in 2016. Patient was told to follow up 1 month later for further staging with banding, but never did with Dr. Weber. It also appears by chart review, he has been noncompliant with his medications including Protonix and propranolol. He has some mild midepigastric pain. No confusion. No jaundice. Blood work shows anemia, hemoglobin 11. His lipase is elevated at 523. Patient admitted for further evaluation and management. Allergies: NKDA. Medications: See list. Past Medical History: Significant for alcoholic cirrhosis of the liver, hypertension, tobacco abuse, right nephrolithiasis, esophageal varices, history of bleeding, banding of varices in the past, ____ left arm muscle repair. Social History: , one child, though does not work. Still smokes, but quit alcohol 6 years ag o, he reports. Family History: Father of complications of asbestosis with lung disease, hypertension. Mother of lung cancer, also had diabetes. Review of Systems: Patient has some hematemesis, melena, midepigastric pain, tenderness. He did have some mild shortnes s of breath. No chest pain, seizure, syncope. Some lower extremity edema, but no cyanosis or clubbi ng. No joint pains, muscle aches, joint aches, backaches. No depression, anxiety noted. No change in bowel habits, constipation, diarrhea. No hematochezia. No hemoptysis, hematuria, dysur ia, polydipsia. Physical Examination: Vital Signs: Patient is 5 foot 9 inch, 225 pounds, BMI of 33.2 kg/m2. He has a temperature of 97 de grees Fahrenheit, pulse 95, respirations 18, blood pressure 101/65, O2 saturation 100%. General: He is a well-nourished, well-developed, obese male, lying in bed, in no acute distress. HEENT: Normocephalic, atraumatic. Pupils equal, round, and reactive to light. Anicteric. Orophary nx clear. Neck: Supple. No masses. Respirations: Decreased breath sounds at bases. Cardiac: Regular rate and rhythm. No gallops or rubs. Abdomen: Hypoactive bowel sounds. Soft, nondistended, obese. Some slight midepigastric tenderness. Extremities: No clubbing, cyanosis. Trace lower extremity edema. Neuro: Alert and oriented x3. Grossly nonfocal. 5/5 motor strength. Sensation intact to light brett ch. Laboratory Data: Patient had a white count of 9.5, hemoglobin 10.0, hematocrit 29, MCV of 106, plate let count 125, polys of 81%, lymphocytes 11%, monocytes 7%. Patient has a PT of 14.9, INR of 1.2, AP TT 29.9. Patient has a sodium of 141, potassium 3.9, chloride 109, bicarb 25, BUN 9, creatinine of 0 .9, glucose 203, calcium 7.5. Magnesium 1.7. Total bili 1.6, direct bilirubin 0.6, AST 62, ALT 45, alk phos 107, total protein 5.9, albumin 3.3, lipase of 523. Chest x-ray, no acute abnorm alities noted. Impression: 1.Upper gastrointestinal bleed, massive with hematemesis and melena. Hemoglobin down to history of esophageal varices. 2.History of esophageal varices, status post banding on May 31, 2015, at [facility] at that time. He has a history of end-stage liver disease, cirrhosis secondary to alcohol, which he quit 6 years ago and other as per above. Recommendations: 1.Keep patient n.p.o., urgent EGD. 2.Start IV octreotide. 3.Start IV ceftriaxone. 4.Serial H and H's and transfuse p.r.n. with a goal hemoglobin of approximately 7 to 8. 5.ICU monitoring. 6.PPI therapy. The patient could have other etiologies for bleeding other than varices such as pept ic ulcer disease or other. WS/MODL Voice ID: [id number] Report ID: [id number]
== END 2019-03-21 16:40 | disposition expired | DRG 432 ==
LOC: ER 03:20 → ERHOLD 06:50 → 2ND 08:22 → 3RD-ICU 10:56
PROVIDERS: ADMIT Internal Medicine; ATTEND Internal Medicine
PROC: 0BH17EZ Insertion of Endotracheal Airway into Trachea, Via Natural or Artificial Opening (ICD-10-PCS; 2019-03-20)
PROC: 5A1945Z Respiratory Ventilation, 24-96 Consecutive Hours (ICD-10-PCS; 2019-03-20)
PROC: 0DJ08ZZ Inspection of Upper Intestinal Tract, Via Natural or Artificial Opening Endoscopic (ICD-10-PCS; principal; 2019-03-20 12:30)
PROC: 30233K1 Transfusion of Nonautologous Frozen Plasma into Peripheral Vein, Percutaneous Approach (ICD-10-PCS; 2019-03-21)
PROC: 30233K1 Transfusion of Nonautologous Frozen Plasma into Peripheral Vein, Percutaneous Approach (ICD-10-PCS; 2019-03-21)
PROC: 30233N1 Transfusion of Nonautologous Red Blood Cells into Peripheral Vein, Percutaneous Approach (ICD-10-PCS; 2019-03-21)
PROC: 30233N1 Transfusion of Nonautologous Red Blood Cells into Peripheral Vein, Percutaneous Approach (ICD-10-PCS; 2019-03-21)
PROC: 30233N1 Transfusion of Nonautologous Red Blood Cells into Peripheral Vein, Percutaneous Approach (ICD-10-PCS; 2019-03-21)
PROC: 30233N1 Transfusion of Nonautologous Red Blood Cells into Peripheral Vein, Percutaneous Approach (ICD-10-PCS; 2019-03-21)
DX: K70.30 Alcoholic cirrhosis of liver without ascites (principal); I85.11 Secondary esophageal varices with bleeding; D62 Acute posthemorrhagic anemia; R57.1 Hypovolemic shock; I10 Essential (primary) hypertension; F17.210 Nicotine dependence, cigarettes, uncomplicated; R79.89 Other specified abnormal findings of blood chemistry; Z91.14 Patient's other noncompliance with medication regimen
CPT/HCPCS: 36415; 36430; 71045; 80048; 80076; 82550; 82553; 82805; 83690; 83735; 83880; 84132; 84484; 85014; 85018; 85025; 85610; 85730; 86850; 86900; 86901; 87040; 93005; 94002; 94760; 96361; 96374; 96375; 99285; C9113; J0171; J0330; J0610; J0696; J1265; J2250; J2270; J2354; J2370; J2405; J2550; J2597; J2704; J3010; J3475; J7030; J7040; J7042; J7060; J7120; P9016; P9059